=== PATIENT | male | born 1950 | race Caucasian/White ===

== ENCOUNTER → 2017-07-25 | Outpatient (CLI) | payer MEDICARE, OTHER ==
[~2017-07-25] MED LIST: ALLO100T70 PO; CEPH-13 PO; COL0.6 PO; DIPH0.5D12 IM; FLU45SYR25 IM ONLY; FLUT16SP19 NS; GABA-547 PO; GLUC-198 PO; HYDR-2966 PO; HYDR-4309 PO; IBUP800T37 PO; INDO-1 PO; INDO25 PO; LEV25 PO; LEVO-3 PO; LEVO75TA73 PO; LISI-362 PO; LISI20TA29 PO; MELO-205 PO; OMEG-11 PO; PER PO; PNEI IJ; PNEU0.5D3 IM; PRE20 PO; PRE5 PO; PRED-1 PO; SILD100T59 PO; TRAM-420 PO; ZOLP-358 PO; ZOLP12.545 PO
[2017-07-25 10:12] LABS: LDL CHOLESTEROL 71 mg/dl
== END ==
LOC: LAB 09:44
PROVIDERS: ATTEND Internal Medicine
DX: R73.01 Impaired fasting glucose (principal); E03.9 Hypothyroidism, unspecified; I10 Essential (primary) hypertension
CPT/HCPCS: 36415; 82040; 82247; 82310; 82374; 82435; 82465; 82565; 82947; 83036; 83718; 84075; 84132; 84155; 84295; 84443; 84450; 84460; 84478; 84520

== ENCOUNTER → 2018-05-27 | Outpatient (CLI) | payer MEDICARE, OTHER ==
[~2018-05-27] MED LIST changes: +ALLO-119 PO; -HYDR-4309 PO; +HYDR-653 PO; -INDO-1 PO; +INDO-21 PO; +INDO-23 PO; +PRED-420 PO
[2018-05-27 10:32] LABS: PLATELET COUNT, AUTOMATED 332 K/uL (150-450)
[2018-05-27 11:33] LABS: LDL CHOLESTEROL 73 mg/dl
== END ==
LOC: LAB 09:53
PROVIDERS: ATTEND Internal Medicine
DX: Z12.5 Encounter for screening for malignant neoplasm of prostate (principal); E03.9 Hypothyroidism, unspecified; M10.9 Gout, unspecified; I10 Essential (primary) hypertension; R73.9 Hyperglycemia, unspecified
CPT/HCPCS: 36415; 81001; 83036; 84439; 84443; 84550; 85025; G0103; 82040; 82247; 82310; 82374; 82435; 82465; 82565; 82947; 83718; 84075; 84132; 84153; 84155; 84295; 84450; 84460; 84478; 84520

== ENCOUNTER → 2018-06-15 | Outpatient (CLI) | payer MEDICARE, OTHER ==
[~2018-06-15] MED LIST changes: -DIPH0.5D12 IM; +DIPH0.5S2 IM
== END ==
LOC: LAB 10:01
PROVIDERS: ATTEND Internal Medicine
DX: Z52.001 Unspecified donor, stem cells (principal)
CPT/HCPCS: 36415

== ENCOUNTER → 2018-07-02 | Outpatient (CLI) | payer MEDICARE, OTHER ==
[2018-07-02 09:20] LABS: PLATELET COUNT, AUTOMATED 155 K/uL (150-450)
== END ==
LOC: LAB 08:58
PROVIDERS: ATTEND Internal Medicine
DX: E03.9 Hypothyroidism, unspecified (principal); M10.9 Gout, unspecified; E11.9 Type 2 diabetes mellitus without complications; I10 Essential (primary) hypertension; R71.8 Other abnormality of red blood cells; R79.89 Other specified abnormal findings of blood chemistry
CPT/HCPCS: 36415; 82040; 82247; 82310; 82374; 82435; 82565; 82607; 82728; 82746; 82947; 83540; 83550; 84075; 84132; 84155; 84295; 84450; 84460; 84520; 84550; 85025

== ENCOUNTER → 2018-09-28 | Outpatient (CLI) | payer MEDICARE, OTHER ==
[~2018-09-28] MED LIST changes: +CEPH500T7 PO; +CYAN100088 PO; +FOLI0.8T29 PO
[2018-09-28 10:54] LABS: PLATELET COUNT, AUTOMATED 287 K/uL (150-450)
== END ==
LOC: LAB 08:38
PROVIDERS: ATTEND Internal Medicine
DX: I10 Essential (primary) hypertension (principal); E53.8 Deficiency of other specified B group vitamins
CPT/HCPCS: 36415; 82040; 82247; 82310; 82374; 82435; 82565; 82607; 82746; 82947; 84075; 84132; 84155; 84295; 84450; 84460; 84520; 84550; 85025; 85651; 86140